=== PATIENT | female | born 1950 | race Asian ===

== ENCOUNTER 2018-09-11 09:53 | Emergency (ER) | payer MEDICARE, BC, SELFPAY ==
[2018-09-11 10:00] VITALS: BP 143/76; PULSE 66; RESP 14; TEMP 36.9; O2SAT 99; BMI 23.9
--- NOTE | 2018-09-11 10:07 | DI.RAD.S_ITS ---
PROCEDURE: XR KNEE RT 3V INDICATIONS: fall 3 feet, landed on outside / lateral of right knee. TECHNIQUE: 3 views of the knee were acquired. COMPARISON: None. FINDINGS: Bones: There is likely a comminuted tibial plateau fracture which is incompletely characterized on plain film. This appears to involve both the medial and lateral tibial plateau. Soft tissues: There is a large hemarthrosis in the knee joint. IMPRESSION: Hemarthrosis in the knee joint and tibial plateau fracture which may involve both the medial and lateral tibial plateau. CT of the knee is recommended to further characterize findings. Dictated by: Lary Chung M.D. on 09/11/2018 at 11:04 Approved by: Lary Chung M.D. on 09/11/2018 at 11:05
[2018-09-11] MEDS: ACETAMINOPHEN 325 MG TABLET 975 MG PO (10:14)
[2018-09-11] MEDS: IBUPROFEN 400 MG TABLET PO (10:14)
[2018-09-11 10:17] VITALS: PULSE 66
--- NOTE | 2018-09-11 10:19 | PC.NURSE ---
Head to toe exam reveals no other trauma. Right knee atraumatic, no contusion, bruising at this time. Painful to flex.
--- NOTE | 2018-09-11 10:46 | ED_ITS ---
HPI - Extremity Injury (Lower) General Chief Complaint: Extremity Injury, Lower Stated Complaint: Slip and Fall Time Seen by Provider: 09/11/18 10:33 Source: patient and family Mode of arrival: EMS Limitations: no limitations History of Present Illness HPI Narrative: This is a 68-year-old female comes to the emergency department with complaint of right lower extremity pain. [place] to [place] is and slipped and tumbled forward. She has pain at the right lateral knee just below the knee. Patient is tender, she is able to flex and extend although it is somewhat uncomfortable and she states weight-bearing is quite uncomfortable. Patient denies any numbness or tingling she denies any other injuries. She denies hitting her, she denies any neck or back pain. She states she felt nauseated right when she fell and was most painful but that has resolved. She denies any chest pain or shortness of breath. She denies any other current medical problems. She states she does not do well with codeine. Related Data Previous Rx's Medication Instructions Recorded hydrocodone-acetaminophen [Harned] 1 tab PO Q6H PRN #20 tab 09/11/18 Allergies Allergy/AdvReac Type Severity Reaction Status Date / Time codeine Allergy Severe Difficulty Verified 09/11/18 10:04 Breathing Review of Systems Review of Systems All systems reviewed & are unremarkable except as noted in HPI and below Gastrointestinal Gastrointestinal: Reports nausea and Denies vomiting Musculoskeletal Reports as per HPI, Reports abnormal gait (difficulty ambulating second to pain. ), Denies deformity, Reports arthralgias, Reports joint swelling (right knee), Reports limited range of motion (pain flex/ext, especially with rotation.), Denies numbness and Denies tingling Integumentary/Breasts Denies unusual bruising and Denies wounds Neurologic Reports abnormal gait (difficulty ambulating second to pain.), Denies numbness and Denies tingling PFSH Surgical History Hx of appendectomy (Acute) Social History Smoking Status: Never smoker Exam Narrative Exam Narrative: GENERAL: Alert and oriented x three, well-nourished, well- appearing female in mild distress. HEENT: Head normocephalic, atraumatic, EOMI, pupils reactive, face symmetric, moist mucous membranes NECK: Supple, full range of motion, no vertebral tenderness, no step-off or crepitus. CARDIOVASCULAR: Regular rate and rhythm without murmurs, rubs or gallops. RESPIRATORY: Breath sounds equal bilaterally, no wheezes rales or rhonchi. ABDOMEN: Soft, nontender. Normoactive bowel sounds all 4 quadrants. No guarding or rebound, rigidity, no mass EXTREMITIES: Normal range of motion except at the knee patient is able to flex and extend has quite a bit discomfort with internal or external rotation of the knee. Patient has tenderness over the proximal fibular her lateral tibia area. There is no cleared deformity, no crepitus. Patient does not have any patellar tenderness. She has no soft tissue tenderness posteriorly. Patient does not have any bony tenderness of the lower extremity. She has normal sensation she has 2+ dorsalis pedis pulse. She has cap refill less than 2 sec in all 5 toes. Patient has no ecchymosis, no lacerations or wounds. no clubbing or edema. Neurovascularly intact NEUROLOGICAL: Cranial nerves II through XII grossly intact. Moving all extremities SKIN: Warm, dry, no petechiae, no rashes or lesions. Initial Vital Signs Initial Vital Signs: Vital Signs Temperature 98.4 F 09/11/18 10:00 Pulse Rate 66 09/11/18 10:00 Respiratory Rate 14 09/11/18 10:00 Blood Pressure 143/76 H 09/11/18 10:00 Pulse Oximetry 99 09/11/18 10:00 Course Orders Ordered: ED Orders 09/11/18 10:07 XR knee RT 3V Stat 09/11/18 12:42 CT LE RT wo con Stat Discontinued Medications Acetaminophen (Tylenol) 975 mg PO NOW ONE Stop: 09/11/18 10:09 Last Admin: 09/11/18 10:14 Dose: 975 mg Hydrocodone Bitart/Acetaminophen (Harned 5/325) 1 tab PO NOW ONE Stop: 09/11/18 11:34 Last Admin: 09/11/18 11:59 Dose: 1 tab Ibuprofen (Advil) 400 mg PO NOW ONE Stop: 09/11/18 10:09 Last Admin: 09/11/18 10:14 Dose: 400 mg Vital Signs - 8 hr 09/11/18 11:16 09/11/18 13:01 09/11/18 14:27 Pulse Rate 65 69 79 Respiratory Rate 17 14 13 Blood Pressure 146/76 H Blood Pressure [Right Arm] 155/63 H 148/69 H Pulse Oximetry 98 97 100 MDM - Extremity Injury (Lower) Imaging Data xray knee right: Radiologist's impression: [address] [address] XRay Report Addendum Patient: Cathy Mendez MR#: [id number] : 1950 Acct:[id number] Age/Sex: 68 / F Date of Service: 09/11/18 Loc: ED Accession Number: [id number] Procedure: XR knee RT 3V Ordering Provider: Arcelia Ying D.O. ADDENDUM This report includes an Addendum and supersedes previous reports for this exam. PROCEDURE: XR KNEE RT 3V INDICATIONS: fall 3 feet, landed on outside / lateral of right knee. TECHNIQUE: 3 views of the knee were acquired. COMPARISON: None. FINDINGS: Bones: There is likely a comminuted tibial plateau fracture which is incompletely characterized on plain film. This appears to involve both the medial and lateral tibial plateau. Soft tissues: There is a large hemarthrosis in the knee joint. IMPRESSION: Hemarthrosis in the knee joint and tibial plateau fracture which may involve both the medial and lateral tibial plateau. CT of the knee is recommended to further characterize findings. Dictated by: Lary Chung M.D. on 09/11/2018 at 11:04 Approved by: Lary Chung M.D. on 09/11/2018 at 11:05 ADDENDUM: Please note, there is likely a medial patellar fracture as well which is not mentioned in the above report. Dictated by: Lary Chung M.D. on 09/11/2018 at 11:07 Approved by: Lary Chung M.D. on 09/11/2018 at 11:08 Addendum Dictated By: Lary Chung MD Addendum Signed By: Addendum Cosigned By: DD/ /23/1111 TD/TT: 09/11/1801/23/1111 PROCEDURE: XR KNEE RT 3V INDICATIONS: fall 3 feet, landed on outside / lateral of right knee. TECHNIQUE: 3 views of the knee were acquired. COMPARISON: None. FINDINGS: Bones: There is likely a comminuted tibial plateau fracture which is incompletely characterized on plain film. This appears to involve both the medial and lateral tibial plateau. Soft tissues: There is a large hemarthrosis in the knee joint. IMPRESSION: Hemarthrosis in the knee joint and tibial plateau fracture which may involve both the medial and lateral tibial plateau. CT of the knee is recommended to further characterize findings. Dictated by: Lary Chung M.D. on 09/11/2018 at 11:04 Approved by: Lary Chung M.D. on 09/11/2018 at 11:05 [facility] Narrative Medical decision making narrative: Dr. Cordova, reviewed images. Discussed and needs CT to evaluate how extensive injury is in case she needs referral to tertiary care center. Dr. Cordova reviewed Ct images after they returned, knee immobilizer, non-weight bearing, some risk for compartment syndrome. Patient does not need tertiary care referral at this time. She does need to follow up with Orthopedic surgery. She may still need surgical repair. Discussed with patient. They live in [place], [place]. Given a CD disc of x-ray as well as CT findings. They have options for orthopedic follow-up where they live. Given a prescription for pain medication, crutches as well as discussed reasons to return emergently either here or other local ER. Discharge Plan Departure Patient Disposition: Home Clinical Impression: Closed fracture of tibial plateau, Patellar fracture Discharge Date/Time: 09/11/18 14:28 Interventions: ED Discharge Assessment Last Done: 09/11/18 14:27 Instructions: DI for Patella Fracture, DI for Tibial Plateau Fracture Activity Restrictions/Additional Instructions: Follow up with orthopedic surgery, call for an appointment on Thursday. You may follow up with your local Orthopedic surgery if you prefer, take your CD of xray and CT imaging with you to your appointment. Take medication as prescribed this medication can make you sleepy do not drive, perform hazards activities or make any major decisions while taking it. You may take Tylenol 650 mg instead of the narcotic pain medication. Both medications have Tylenol in them, do not take more than 2 3000 mg of acetaminophen/Tylenol in 24 hours. You may use ice to the affected area as needed. You are non-weight bearing and use crutches until cleared by Orthopedic surgery. Splint Care: Keep splint clean and dry. Elevated affected body part to decrease swelling. OK to use ice pack on the affected body part. Use for 15-20 minutes each time, for 5-6x per day. If you develop worsening pain, numbness, tingling, discoloration of the affected body part, loosen the splint by loosening the REGINO wrap, and either see your doctor for an urgent re-assessment, or return to the Emergency Department. Return to the Emergency Department for any new or worsening symptoms. Prescriptions: New hydrocodone-acetaminophen [Harned] 5-325 mg tablet 1 tab PO Q6H PRN (Reason: pain) Qty: 20 RF: 0 Referrals: Mark Cordova MD [Physician] -
[2018-09-11 11:16] VITALS: BP 155/63; PULSE 65; RESP 17; O2SAT 98
[2018-09-11] MEDS: HYDROCODONE/ACET 5/325 TABLET 1 TAB PO (11:59)
--- NOTE | 2018-09-11 12:42 | DI.CT.S_ITS ---
PROCEDURE: CT LE RT WO CON INDICATIONS: fracture right knee TECHNIQUE: Noncontrast 1-1.5 mm axial sections acquired from the mid-patella to the proximal tibia, with coronal and sagittal reformats. COMPARISON: None. FINDINGS: Image quality: Excellent. Bones: There is a comminuted, displaced bicondylar tibial plateau fracture. There is no depression of the fracture. Visualized portions of the fibula are intact. Visualized portions of the femur are intact. There are small tricompartmental osteophytes. The patella is intact. Soft tissues: There is a large hemarthrosis within the knee joint. IMPRESSION: 1. Displaced, comminuted bicondylar tibial plateau fracture without depression. 2. Large right knee hemarthrosis. Dictated by: Lary Chung M.D. on 09/11/2018 at 13:11 Approved by: Lary Chung M.D. on 09/11/2018 at 13:19
[2018-09-11 13:01] VITALS: BP 148/69; PULSE 69; RESP 14; O2SAT 97
[2018-09-11 14:27] VITALS: BP 146/76; PULSE 79; RESP 13; O2SAT 100
== END 2018-09-11 14:28 | disposition home or self-care (01) ==
PROVIDERS: Emergency Provider Emergency Medicine
DX: S89.30 Unspecified physeal fracture of lower end of fibula (principal); W19.XXXA Unspecified fall, initial encounter
CPT/HCPCS: 29530; 73562; 73700; 99283